=== PATIENT | female | born 1990 | race African-American/Black ===

== ENCOUNTER 2018-06-28 12:48 | Inpatient (IN) | payer SELFPAY ==
[~2018-06-28] VITALS: Ht 170.2 cm; Wt 68.0 kg
[2018-06-28] MEDS ORDERED: FAMOTIDINE 20MG/2ML VIAL IV STA (15:15)
[2018-06-28] MEDS ORDERED: ONDANSETRON HCL 4MG/2ML VIAL IV STA (15:15)
[2018-06-28] MEDS ORDERED: ACETAMINOPHEN 325MG TABLET PO STA (15:15)
[2018-06-28] MEDS ORDERED: SODIUM CHLORIDE 0.9% 1,000 ML IV ONE (15:15)
[2018-06-28 15:42] LABS: BASOPHILS % 0.2 % (0.0-2.0); EOSINOPHILS % 1.1 % (0.0-5.0); HEMATOCRIT. 37.7 % (36.0-48.0); HEMOGLOBIN. 12.9 g/dL (12.0-16.0); LYMPHOCYTES % 18.1 % (20.0-50.0); MEAN CORPUSCULAR HEMOGLOBIN 29.7 pg (28.0-32.0); MEAN CORPUSCULAR VOLUME 86.7 fL (81.0-99.0); MEAN PLATELET VOLUME 9.4 fl (7.4-10.4); MONOCYTES % 7.9 % (2.0-8.0); NEUTROPHILS % 72.7 % (40.0-76.0); PLATELET 103 x1000/uL (130-400); RED BLOOD CELL COUNT 4.34 mill/uL (4.2-5.4); RED CELL DISTRIBUTION WIDTH 13.3 % (11.6-14.6)
[2018-06-28 15:44] LABS: CHLORIDE 92 mEq/L (98-107); INR 1.4; PROTHROMBIN TIME 14.4 sec (9.4-11.6)
[2018-06-28 15:49] LABS: CLARITY URINE CLEAR (CLEAR); COLOR URINE DARK YELLOW (YELLOW); KETONES URINE 1+ (NEGATIVE); LEUKOCYTE ESTERASE URINE TRACE (NEGATIVE); NITRITE URINE NEGATIVE (NEGATIVE); OCCULT BLOOD URINE NEGATIVE (NEGATIVE); PH URINE 5.5 (4.5-8.0); PROTEIN URINE 2+ (NEGATIVE); SPECIFIC GRAVITY URINE 1.018 (1.005-1.030)
[2018-06-28 16:01] LABS: *AMPHETAMINES SCREEN URINE NEGATIVE (NEGATIVE); *BARBITURATES SCREEN URINE NEGATIVE (NEGATIVE); *BENZODIAZEPINES SCREEN URINE NEGATIVE (NEGATIVE); *COCAINE SCREEN URINE NEGATIVE (NEGATIVE); CANNABINOID URINE SCREEN NEGATIVE (NEGATIVE); PHENCYCLIDINE URINE SCREEN NEGATIVE (NEGATIVE)
[2018-06-28 16:03] LABS: METHADONE URINE SCREEN NEGATIVE (NEGATIVE); OPIATES URINE SCREEN NEGATIVE (NEGATIVE)
[2018-06-28] MEDS ORDERED: POTASSIUM CHLORIDE 20MEQ TABLET SR PO ONE (17:45)
[2018-06-28] MEDS ORDERED: MORPHINE SULFATE 2 MG/ML CPJ (NOT FOR IM USE) IV ONE (22:15)
[2018-06-28 23:50] VITALS: BP 109/58
[2018-06-29] VITALS: BP 109/58
[2018-06-29] MEDS ORDERED: POTASSIUM CHLORIDE 20MEQ TABLET SR PO NR (01:00)
[2018-06-29] MEDS: KETOROLAC 30MG/ML VIAL IV PRN ×2 (01:05→11:20)
[2018-06-29] MEDS: SODIUM CHLORIDE 0.9% 1,000 ML IV SCH ×2 (01:44→14:37)
[2018-06-29 04:00] VITALS: BP 112/53
[2018-06-29] MEDS ORDERED: MAGNESIUM 2 G PREMIX 50 ML IV NR (04:00)
[2018-06-29 06:23] LABS: BASOPHILS % 0.3 % (0.0-2.0); HEMATOCRIT. 35.9 % (36.0-48.0); LYMPHOCYTES % 42.7 % (20.0-50.0); MEAN CORPUSCULAR HEMOGLOBIN 29.6 pg (28.0-32.0); MEAN CORPUSCULAR VOLUME 88.8 fL (81.0-99.0); MEAN PLATELET VOLUME 9.5 fl (7.4-10.4); MONOCYTES % 10.3 % (2.0-8.0); NEUTROPHILS % 40.7 % (40.0-76.0); PLATELET 76 x1000/uL (130-400); RED BLOOD CELL COUNT 4.05 mill/uL (4.2-5.4); RED CELL DISTRIBUTION WIDTH 13.4 % (11.6-14.6)
[2018-06-29 07:02] LABS: HEPATITIS B SURFACE ANTIGEN NEGATIVE
[2018-06-29 07:16] LABS: CHLORIDE 99 mEq/L (98-107)
[2018-06-29 07:30] LABS: HEPATITIS B CORE AB IGM NEGATIVE
[2018-06-29 08:00] VITALS: BP 96/55
[2018-06-29 08:04] LABS: HEPATITIS A AB IGM NEGATIVE (NEGATIVE)
[2018-06-29 12:00] VITALS: BP 99/61
[2018-06-29 13:03] LABS: GAMMA GLUTAMYL TRANSPEPTIDASE 312 IU/L (7-32)
[2018-06-29] MEDS: ONDANSETRON 4MG ODT PO PRN (14:36)
[2018-06-29 14:39] LABS: TOTAL IRON BINDING CAPACITY 241 ug/dL (250-450)
[2018-06-29 15:57] VITALS: BP 100/56
[2018-06-29 20:00] VITALS: BP_SYST 94; BP_DIAS 49; BP_DIAS 59
[2018-06-30] VITALS: BP 96/58
[2018-06-30] MEDS: SODIUM CHLORIDE 0.9% 1,000 ML IV SCH ×2 (03:08→22:25)
[2018-06-30 04:00] VITALS: BP 108/66
[2018-06-30] MEDS: KETOROLAC 30MG/ML VIAL IV PRN ×2 (06:08→17:49)
[2018-06-30 06:52] LABS: BASOPHILS % 0.5 % (0.0-2.0); EOSINOPHILS % 4.6 % (0.0-5.0); HEMATOCRIT. 35.7 % (36.0-48.0); HEMOGLOBIN. 11.9 g/dL (12.0-16.0); LYMPHOCYTES % 31.8 % (20.0-50.0); MEAN CORPUSCULAR HEMOGLOBIN 29.7 pg (28.0-32.0); MEAN CORPUSCULAR VOLUME 89.1 fL (81.0-99.0); MEAN PLATELET VOLUME 9.3 fl (7.4-10.4); MONOCYTES % 11.5 % (2.0-8.0); NEUTROPHILS % 51.6 % (40.0-76.0); PLATELET 122 x1000/uL (130-400); RED CELL DISTRIBUTION WIDTH 13.9 % (11.6-14.6)
[2018-06-30 07:03] LABS: INR 1.1; PARTIAL THROMBOPLASTIN TIME 26.1 sec (23.4-31.0); PROTHROMBIN TIME 11.2 sec (9.4-11.6)
[2018-06-30 08:00] VITALS: BP 100/62
[2018-06-30] MEDS: PANTOPRAZOLE SODIUM 40 MG/VIAL IV SCH (08:53)
[2018-06-30] MEDS ORDERED: POTASSIUM CHLORIDE 20MEQ TABLET SR PO NR (09:30)
[2018-06-30 16:05] VITALS: BP 101/64
[2018-06-30] MEDS: BLOOD SUGAR DIAGNOSTIC STRIP TEST SCH (17:33)
[2018-06-30 20:00] VITALS: BP 91/56
[2018-07-01] VITALS: BP 95/56
[2018-07-01] MEDS: KETOROLAC 30MG/ML VIAL IV PRN ×3 (01:19→23:16)
[2018-07-01] MEDS: ONDANSETRON 4MG ODT PO PRN (01:20)
[2018-07-01 04:00] VITALS: BP 109/72
[2018-07-01] MEDS: SODIUM CHLORIDE 0.9% 1,000 ML IV SCH ×2 (04:57→17:37)
[2018-07-01 07:58] VITALS: BP 113/78
[2018-07-01] MEDS: PANTOPRAZOLE SODIUM 40 MG/VIAL IV SCH (08:30)
[2018-07-01 11:40] VITALS: BP 110/69
[2018-07-01 15:57] VITALS: BP 106/72
[2018-07-01] MEDS: BLOOD SUGAR DIAGNOSTIC STRIP TEST SCH (17:37)
[2018-07-01] MEDS: FAMOTIDINE 20MG TABLET PO SCH (17:37)
[2018-07-01] MEDS ORDERED: DOCUSATE SODIUM 100MG CAPSULE PO PRN (18:30)
[2018-07-01 19:06] LABS: ANTI-NUCLEAR ANTIBODIES DIRECT Negative (Negative)
[2018-07-01 20:00] VITALS: BP 112/72
[2018-07-02] VITALS: BP 116/68
[2018-07-02 04:00] VITALS: BP 119/62
[2018-07-02] MEDS: SODIUM CHLORIDE 0.9% 1,000 ML IV SCH ×3 (05:44→23:30)
[2018-07-02] MEDS: KETOROLAC 30MG/ML VIAL IV PRN ×2 (10:41→18:45)
[2018-07-02] MEDS ORDERED: PROMETHAZINE/DEXTROMETHORPHAN 6.25-15MG/5ML BOTTLE 120ML PO PRN (13:00)
[2018-07-02] MEDS ORDERED: LEVOFLOXACIN 500MG PREMIX 100 ML IV NR (13:00)
[2018-07-02] MEDS: IPRATROPIUM/ALBUTEROL 0.5-3(2.5)MG/3ML NEB HHN SCH ×2 (13:47→20:01)
[2018-07-02] MEDS: FAMOTIDINE 20MG TABLET PO SCH (17:31)
[2018-07-02] MEDS: BLOOD SUGAR DIAGNOSTIC STRIP TEST SCH (18:24)
[2018-07-02 20:00] VITALS: BP 123/77
[2018-07-02] MEDS: GUAIFENESIN 600MG ER TABLET PO SCH (20:33)
[2018-07-03] VITALS: BP 114/79
[2018-07-03] MEDS: IPRATROPIUM/ALBUTEROL 0.5-3(2.5)MG/3ML NEB HHN SCH ×2 (01:59→09:22)
[2018-07-03 04:53] VITALS: BP 132/79
[2018-07-03] MEDS: SODIUM CHLORIDE 0.9% 1,000 ML IV SCH ×2 (05:00→15:00)
[2018-07-03] MEDS: KETOROLAC 30MG/ML VIAL IV PRN ×2 (05:04→17:02)
[2018-07-03 08:00] VITALS: BP 142/99
[2018-07-03] MEDS: GUAIFENESIN 600MG ER TABLET PO SCH ×2 (09:22→21:00)
[2018-07-03 12:00] VITALS: BP 130/86
[2018-07-03 12:05] LABS: HEMATOCRIT. 33.3 % (36.0-48.0); MEAN CORPUSCULAR HEMOGLOBIN 29.7 pg (28.0-32.0); MEAN CORPUSCULAR VOLUME 89.6 fL (81.0-99.0); MEAN PLATELET VOLUME 9.6 fl (7.4-10.4); PLATELET 161 x1000/uL (130-400); RED BLOOD CELL COUNT 3.72 mill/uL (4.2-5.4); RED CELL DISTRIBUTION WIDTH 14.8 % (11.6-14.6)
[2018-07-03 12:16] LABS: CHLORIDE 111 mEq/L (98-107)
[2018-07-03 12:28] LABS: PLATELET ESTIMATE NORMAL
[2018-07-03 13:06] LABS: ACTIN (SMOOTH MUSCLE) ANTIBODY 10 Units (0-19)
[2018-07-03] MEDS: LEVOFLOXACIN 250MG PREMIX 50 ML IV SCH (13:14)
[2018-07-03] MEDS ORDERED: BISACODYL 5MG TABLET PO NR (14:00)
[2018-07-03] MEDS ORDERED: POTASSIUM CHLORIDE 20MEQ TABLET SR PO NR (14:15)
[2018-07-03] MEDS: IPRATROPIUM BROMIDE (0.02%) 0.5MG/2.5ML NEB HHN PRN ×2 (15:12→21:01)
[2018-07-03 16:00] VITALS: BP 136/87
[2018-07-03] MEDS ORDERED: IBUPROFEN 200MG TABLET PO PRN (17:00)
[2018-07-03] MEDS: FAMOTIDINE 20MG TABLET PO SCH (17:04)
[2018-07-03] MEDS: IPRATROPIUM BROMIDE (0.02%) 0.5MG/2.5ML NEB HHN SCH (18:00)
[2018-07-03] MEDS: BLOOD SUGAR DIAGNOSTIC STRIP TEST SCH (18:12)
[2018-07-03] MEDS: ONDANSETRON 4MG ODT PO PRN (18:53)
[2018-07-03 20:00] VITALS: BP 109/66
[2018-07-04] VITALS: BP 135/91
[2018-07-04] MEDS: IPRATROPIUM BROMIDE (0.02%) 0.5MG/2.5ML NEB HHN SCH ×4 (01:01→20:20)
[2018-07-04] MEDS: SODIUM CHLORIDE 0.9% 1,000 ML IV SCH (03:41)
[2018-07-04] MEDS: KETOROLAC 30MG/ML VIAL IV PRN ×2 (03:42→15:19)
[2018-07-04 03:43] VITALS: BP 136/99
[2018-07-04 07:39] LABS: CHLORIDE 111 mEq/L (98-107)
[2018-07-04] MEDS: GUAIFENESIN 600MG ER TABLET PO SCH (07:46)
[2018-07-04 08:00] VITALS: BP 118/86
[2018-07-04] MEDS ORDERED: DOCUSATE SODIUM 100MG CAPSULE PO SCH (09:00)
[2018-07-04 12:00] VITALS: BP 130/94
[2018-07-04] MEDS: LEVOFLOXACIN 250MG PREMIX 50 ML IV SCH (13:49)
[2018-07-04] MEDS ORDERED: MAGNESIUM 4 G PREMIX 100 ML IV NR (14:30)
[2018-07-04] MEDS: ONDANSETRON 4MG ODT PO PRN (15:14)
[2018-07-04] MEDS: FAMOTIDINE 20MG TABLET PO SCH (15:17)
[2018-07-04 16:00] VITALS: BP 121/86
[2018-07-04 18:10] VITALS: BP 121/86
== END 2018-07-04 20:40 | disposition home or self-care (01) | DRG 280 ==
LOC: ER 16:39 → 6WST 20:10 → EDBEDREQ 20:17 → EDBEDREQTM 20:17 → ENRESERV 22:52
PROVIDERS: ADMIT Internal Medicine; ATTEND Internal Medicine
DX: K70.10 Alcoholic hepatitis without ascites (principal); N17.9 Acute kidney failure, unspecified; J18.9 Pneumonia, unspecified organism; E83.42 Hypomagnesemia; E87.1 Hypo-osmolality and hyponatremia; E86.0 Dehydration; E87.6 Hypokalemia; F10.20 Alcohol dependence, uncomplicated; F17.210 Nicotine dependence, cigarettes, uncomplicated; J45.909 Unspecified asthma, uncomplicated; K59.00 Constipation, unspecified; N83.201 Unspecified ovarian cyst, right side; Z83.3 Family history of diabetes mellitus; Z91.018 Allergy to other foods
CPT/HCPCS: 36415; 71045; 74176; 76705; 76830; 76856; 80048; 80053; 80076; 80305; 80307; 81003; 81025; 82150; 82390; 82550; 82728; 82962; 82977; 83540; 83550; 83690; 83735; 85025; 85610; 85730; 86038; 86705; 86709; 86803; 87340; 93005; 96361; 96374; 96375; 99285; C1893; C9113; G0482; J1885; J1956; J2270; J2405; J3475; J3490; J7030; J7620; Q0162